=== PATIENT | male | born 1960 | race Two or more races ===

== ENCOUNTER 2019-08-16 10:26 | Emergency (ER) | payer OTHER ==
[~2019-08-16] VITALS: Ht 175.3 cm; Wt 88.5 kg
--- NOTE | 2019-08-16 10:45 | NUR ---
TRIAGE NOTE: PT C/O INTERMITTANT CHEST PAIN ACROSS CHEST WITH SOB. STATES THIS HAS BEEN GOING ON FOR A FEW MONTHS. PT DENIES CP AT THIS TIME AND SAYS HE CAME IN TODAY BECUASE HE WAS TALKING WITH HIS SISTER ABOUT IT AND SHE ADVISED HIM TO COME TO HAVE IT CHECKED OUT.
--- NOTE | 2019-08-16 11:22 | NUR ---
PT AMBULATORTY TO ROOM, ERP TO BEDSIDE.
[2019-08-16 11:50] LABS: ALANINE AMINOTRANSFERASE 34 U/L (12-78); ALBUMIN 3.6 g/dL (3.4-5.0); ANION GAP 6 mmol/L (5-15); CALCIUM 8.4 mg/dL (8.5-10.1); CHLORIDE 108 mmol/L (98-107); CREATININE 1.02 mg/dL (0.7-1.3)
--- NOTE | 2019-08-16 11:51 | NUR ---
PT SITTING IN BED, NO SIGNS OF DISTRESS. WILL CONTINUE TO MONITOR.
[2019-08-16 11:55] LABS: ALKALINE PHOSPHATASE 72 U/L (45-117); BILIRUBIN,TOTAL 0.3 mg/dL (0.2-1.0); TOTAL PROTEIN 7.5 g/dL (6.4-8.2); TROPONIN I < 0.015 ng/mL (0.000-0.045)
[2019-08-16 11:56] LABS: MEAN CORPUSCULAR HGB CONC 33.5 g/dL (33.2-36.2); MEAN CORPUSCULAR VOLUME 86.6 fL (81-97); MEAN PLATELET VOLUME 9.2 fL (7.4-10.4); PLATELET COUNT 221 x10^3/uL (130-400); RED BLOOD COUNT 4.67 x10^6/uL (4.38-5.82); RED CELL DISTRIBUTION WIDTH 14.6 % (9.4-14.8)
[2019-08-16 12:15] LABS: BASOPHILS # (AUTO) 0.05 x10^3/uL (0-0.1); BASOPHILS % (AUTO) 1 % (0-1); EOSINOPHILS % (AUTO) 2 % (1-7); LYMPHOCYTES # (AUTO) 2.49 x10^3/uL (1-3.4); LYMPHOCYTES % (AUTO) 39 % (22-44); MD SCAN; MONOCYTES # (AUTO) 0.55 x10^3/uL (0.2-0.8); MONOCYTES % (AUTO) 9 % (2-9); NEUTROPHILS % (AUTO) 50 % (42-75)
--- NOTE | 2019-08-16 12:19 | NUR ---
PT SITTING IN BED, TEXTING ON PHONE, VSS, NO SIGNS OF DISTRESS, WILL CONTINUE TO MONITOR.
[2019-08-16] MEDS ORDERED: HYDROCHLOROTHIAZIDE 25 MG TABLET PO ONE (12:30)
[2019-08-16 12:49] VITALS: BP 162/103
== END 2019-08-16 12:51 | disposition home or self-care (01) ==
LOC: ED 11:38
DX: R07.89 Other chest pain (principal); K21.9 Gastro-esophageal reflux disease without esophagitis; R00.0 Tachycardia, unspecified; I10 Essential (primary) hypertension
CPT/HCPCS: 36415; 71045; 80053; 84484; 85025; 85379; 93005; 99285

== ENCOUNTER → 2019-11-19 | Outpatient (CLI) | payer OTHER | END | disposition home or self-care (01) | LOC: CFH 08:02 | PROVIDERS: ATTEND Internal Medicine Cardiovascular Disease | DX: I08.2 Rheumatic disorders of both aortic and tricuspid valves (principal); I11.9 Hypertensive heart disease without heart failure | CPT/HCPCS: 93306 ==